=== PATIENT | male | born 1955 ===

== ENCOUNTER 2022-05-19 09:52 | Observation (INO) ==
[~2022-05-19 09:52] MED LIST: Buffered Lidocaine 1% SYRIN 1 ml INTRADERM ONE; Famotidine IV 10 MG/ML 2 ml VIAL (20 mg) IV ONE; Lactated Ringers 1000 ml BAG 1,000 ML IV SCH
[2022-05-19] MEDS ORDERED: ceFAZolin 1 GM in Dextrose 1 GM/50 ML BAG ONE (11:21)
[2022-05-19] MEDS ORDERED: Famotidine IV 10 MG/ML 2 ml VIAL (20 mg) ONE (11:21)
[2022-05-19] MEDS ORDERED: ceFAZolin 2 GM in NS PREMIX 2 GM/100 ML BAG IVPB ONE (11:21)
[2022-05-19] MEDS ORDERED: Buffered Lidocaine 1% SYRIN 1 ml INTRADERM ONE (11:43)
[2022-05-19] MEDS ORDERED: fentaNYL 100 mcg/2 ml 50 MCG/ML VIAL ONE (13:07)
[2022-05-19] MEDS ORDERED: Midazolam 5 mg/5 ml VIAL 1 mg/ml 5 ml VIAL (5 mg) ONE (13:07)
[2022-05-19] MEDS ORDERED: Ketamine HCL 50 mg/ml 10 ml VIAL (500 MG) ONE (13:12)
[2022-05-19 13:37] LABS: INR 1.07 (0.86-1.15)
[2022-05-19] MEDS ORDERED: ROPIVACAINE 5 MG/ML 30 ML BTL (0.5%) ONE ×2 (13:41→13:54)
[2022-05-19] MEDS ORDERED: Propofol 10 mg/ml 100 ML BTL 100 ML ONE (14:04)
[2022-05-19] MEDS ORDERED: Rocuronium 50 mg VIAL 10 mg/ml 5 ml VIAL (50 mg) ONE (15:01)
[2022-05-19] MEDS ORDERED: Glycopyrrolate IV 0.2 MG/ML 1 ML VIAL ONE (15:18)
[2022-05-19] MEDS ORDERED: Naloxone 0.4 mg VIAL 0.4 mg/ml 1 ml VIAL IV PRN (15:19)
[2022-05-19] MEDS ORDERED: Prochlorperazine 5 mg/ml 2 ml VIAL (10 mg) IV PRN (15:19)
[2022-05-19] MEDS ORDERED: Dexamethasone IV 4 MG/ML VIAL 1 ml VIAL ONE (15:25)
[2022-05-19] MEDS ORDERED: Ondansetron 4 mg VIAL 2 MG/ML 2 ml VIAL ONE (15:25)
[2022-05-19] MEDS ORDERED: Phenylephrine IV 10 MG/ML 1 ml VIAL ONE (15:34)
[2022-05-19] MEDS ORDERED: Ondansetron ODT 4 mg TAB 4 MG TAB PO PRN (15:54)
[2022-05-19] MEDS ORDERED: Magnesium Hydroxide LIQ 30 ML UDC PO PRN (15:54)
[2022-05-19] MEDS ORDERED: Lactulose 30 ml UDC PO PRN (15:54)
[2022-05-19] MEDS ORDERED: Ondansetron 4 mg VIAL 2 MG/ML 2 ml VIAL IV PRN (15:54)
[2022-05-19] MEDS ORDERED: Lactated Ringers 1000 ml BAG 1,000 ML IV SCH (16:00)
[2022-05-19] MEDS ORDERED: HYDROmorphone 1 MG/1 ML SYRINGE IV SLOW PU PRN (16:07)
[2022-05-19] MEDS ORDERED: Polyethylene Glycol 3350 17 GM PACKET PO PRN (17:00)
[2022-05-19] MEDS: fentaNYL 100 mcg/2 ml 50 MCG/ML VIAL IV PRN ×4 (19:02→19:22)
[2022-05-19] MEDS ORDERED: hydrALAZINE 20 mg/ml 1 ML Vial IV IV SLOW PU PRN (19:10)
[2022-05-19] MEDS ORDERED: Morphine 4 MG/ML VIAL (1 ml) ONE (19:33)
[2022-05-19] MEDS: Morphine 4 MG/ML VIAL (1 ml) IV PRN ×2 (19:35→20:04)
[2022-05-19] MEDS: Magnesium Hydroxide LIQ 30 ML UDC PO SCH (22:44)
[2022-05-19] MEDS: ceFAZolin 1 GM ADVAN 1 GM in NS 0.9% 50 ML 50 ML IVPB SCH (23:25)
[2022-05-20 05:20] LABS: Hematocrit 42 % (42-52); Hemoglobin 13.9 g/dL (14.0-18.0); Mean Platelet Volume 8.5 fL (7.4-10.4); Platelet Count 178 10^3/uL (150-450)
[2022-05-20 05:54] LABS: Calcium 8.6 mg/dL (8.6-10.3); Potassium 4.4 mmol/L (3.5-5.0); eGFR CKD-EPI 75.3 (>60)
[2022-05-20] MEDS: Magnesium Hydroxide LIQ 30 ML UDC PO SCH (08:08)
[2022-05-20] MEDS: ceFAZolin 1 GM ADVAN 1 GM in NS 0.9% 50 ML 50 ML IVPB SCH ×2 (08:08→15:35)
[2022-05-20] MEDS ORDERED: Morphine ER 30 mg TAB ** extended release PO SCH (09:00)
[2022-05-20] MEDS ORDERED: Vitamin THERAPEUTIC TAB PO SCH (09:00)
[2022-05-20] MEDS ORDERED: Aspirin EC 81 mg TAB.EC (enteric coated) PO SCH (09:00)
[2022-05-20 16:03] VITALS: BP 138/86
== END 2022-05-20 16:50 | disposition home or self-care (01) ==
LOC: EDACCT# → OR 09:52 → INTOOBSV 22:07 → SSU 22:07
PROVIDERS: ADMIT Orthopaedic Surgery Adult Reconstructive Orthopaedic Surgery; ATTEND Orthopaedic Surgery Adult Reconstructive Orthopaedic Surgery